=== PATIENT | female | born 1995 | race Caucasian/White ===

== ENCOUNTER 2022-01-29 08:43 | Emergency (ER) | payer MEDICAID ==
[~2022-01-29] VITALS: Ht 167.6 cm; Wt 81.8 kg
[2022-01-29 08:49] VITALS: BP 140/82
== END 2022-01-29 11:19 | disposition left against medical advice (07) ==
LOC: EMS 08:49
DX: O26.891 Other specified pregnancy related conditions, first trimester (principal); R10.2 Pelvic and perineal pain; R25.2 Cramp and spasm; Z3A.10 10 weeks gestation of pregnancy; Z53.21 Procedure and treatment not carried out due to patient leaving prior to being seen by health care provider

== ENCOUNTER 2024-01-03 09:12 | Emergency (ER) | payer MEDICAID ==
[~2024-01-03] VITALS: Ht 167.6 cm; Wt 72.0 kg
[2024-01-03 09:23] VITALS: BP 121/52; PULSE 90; RESP 18; TEMP 97.8; O2SAT 96
[2024-01-03] MEDS: ACETAMINOPHEN 500 MG TABLET PO ONE (10:20)
== END 2024-01-03 11:43 | disposition home or self-care (01) ==
LOC: EMS 09:12
DX: S83.92XA Sprain of unspecified site of left knee, initial encounter (principal); X58.XXXA Exposure to other specified factors, initial encounter; Y93.89 Activity, other specified; Y92.89 Other specified places as the place of occurrence of the external cause; Y99.8 Other external cause status
CPT/HCPCS: 29505; 99283

== ENCOUNTER 2024-01-23 15:19 | Emergency (ER) | payer MEDICAID ==
[~2024-01-23] VITALS: Ht 162.6 cm; Wt 70.5 kg
[2024-01-23 15:26] VITALS: BP 138/78; PULSE 91; RESP 16; TEMP 98.7; O2SAT 99
[2024-01-23] MEDS ORDERED: AMOX-457 PO (16:23)
[2024-01-23] MEDS ORDERED: HYDR-4062 PO (16:23)
[2024-01-23] MEDS ORDERED: IBUP-1554 PO (16:23)
[2024-01-23] MEDS: CEPHALEXIN MONOHYDRATE 500 MG CAPSULE PO ONE (16:26)
[2024-01-23] MEDS: IBUPROFEN 600 MG TABLET PO ONE (16:26)
[2024-01-23] MEDS: HYDROCODONE/ACETAMINOPHEN 5-325 MG TABLET PO ONE (16:26)
== END 2024-01-23 16:33 | disposition home or self-care (01) ==
LOC: EMS 15:52
DX: K02.9 Dental caries, unspecified (principal); K04.7 Periapical abscess without sinus; L03.211 Cellulitis of face
CPT/HCPCS: 99284; Z7502; Z7610